=== PATIENT | male | born 1955 | race American Indian/Alaskan Native ===

== ENCOUNTER 2017-05-10 10:11 | Emergency (ER) | payer MEDICARE ==
[2017-05-10 10:17] VITALS: BMI 19.0
[2017-05-10 10:23] VITALS: RESP 18; TEMP 98.7
--- NOTE | 2017-05-10 10:49 | ED PDOC ---
Arrival/HPI - General Chief Complaint: Back Pain Time Seen by Provider: 05/10/17 10:41 Historian: Patient - History of Present Illness Narrative History of Present Illness (Text): 05/10/17 10:52 61 year old male presents to the emergency department with left flank pain and generalized weakness for the past 2 weeks. Patient was scheduled for MRI today but states he was dizzy. Patient also saw PMD last week and had bloodwork done. Denies chest pain. Time/Duration: > week Symptom Onset: Gradual Symptom Course: Unchanged Modifying Factors (Text): None Past Medical History - Provider Review Nursing Documentation Reviewed: Yes - Infectious Disease Hx of Infectious Diseases: None - Cardiac Hx Hypertension: Yes Hx Peripheral Vascular Disease: Yes - Pulmonary Hx Asthma: Yes Hx Chronic Obstructive Pulmonary Disease (COPD): Yes - Psychiatric Hx Substance Use: No - Anesthesia Hx Anesthesia: No Family/Social History - Physician Review Nursing Documentation Reviewed: Yes Family/Social History: Unknown Family HX Smoking Status: Light Smoker < 10 Cigarettes Daily Hx Alcohol Use: No Hx Substance Use: No Allergies/Home Meds Allergies/Adverse Reactions: Allergies No Known Allergies Allergy (Verified 05/10/17 10:17) Home Medications: Home Meds Medication Instructions Recorded Confirmed Albuterol HFA [Ventolin HFA 90 1 puff IH QID PRN 05/10/17 05/10/17 mcg/actuation (8 g)] Azilsartan Medoxomil [Edarbi] 1 tab PO DAILY 05/10/17 05/10/17 Metoprolol Tartrate [Lopressor] 1 tab PO DAILY 05/10/17 05/10/17 amLODIPine [Norvasc] 1 tab PO DAILY 05/10/17 05/10/17 cloNIDine [Catapres] 1 tab PO DAILY 05/10/17 05/10/17 cloNIDine [Catapres] 1 tab PO DAILY 05/10/17 05/10/17 hydroCHLOROthiazide [Hydrodiuril] 1 tab PO DAILY 05/10/17 05/10/17 Review of Systems - Physician Review All systems were reviewed & negative as marked: Yes - Review of Systems Constitutional: Fatigue Cardiovascular: absent: Chest Pain Gastrointestinal: Abdominal Pain (radiating to flank pain) Neurological: Dizziness Physical Exam Vital Signs Reviewed: Yes Vital Signs Temp Pulse Resp BP Pulse Ox 05/10/17 12:11 82 18 173/117 H 100 05/10/17 10:27 198/134 H 05/10/17 10:22 98.7 F 108 H 18 210/128 H 86 L Temperature: Afebrile Blood Pressure: Hypertensive Pulse: Tachycardic Respiratory Rate: Normal Appearance: Positive for: Well-Appearing, Non-Toxic, Comfortable Pain Distress: None - Systems Exam Head: Present: Atraumatic, Normocephalic Pupils: Present: PERRL Extroacular Muscles: Present: EOMI Conjunctiva: Present: Normal Mouth: Present: Moist Mucous Membranes Neck: Present: Normal Range of Motion Respiratory/Chest: Present: Clear to Auscultation, Good Air Exchange. No: Respiratory Distress, Accessory Muscle Use Cardiovascular: Present: Regular Rate and Rhythm, Normal S1, S2. No: Murmurs Abdomen: Present: Normal Bowel Sounds. No: Tenderness, Distention, Peritoneal Signs Back: Present: Other (Mild left flank tenderness) Upper Extremity: Present: Normal Inspection. No: Cyanosis, Edema Lower Extremity: Present: Normal Inspection. No: Edema Neurological: Present: GCS=15, CN II-XII Intact, Speech Normal Skin: Present: Warm, Dry, Normal Color. No: Rashes Psychiatric: Present: Alert, Oriented x 3, Normal Insight, Normal Concentration Medical Decision Making ED Course and Treatment: Impression: 61 year old male presents to the emergency department with left flank pain and generalized weakness for the past 2 weeks. Differential Diagnosis included but are not limited to: r/o renal colic, uti/ pyelo. pt with dizziness. consider atypical cardiac Plan: -- CT Abdomen/Pelvis, EKG, Chest X-ray -- Labs -- Reassess and disposition Progress Notes: PROCEDURE: CT Abdomen and Pelvis without Oral or IV contrast. Supervising Nurse : Thelma Mccoy MD Report Date : 05/10/2017 11:23:18 IMPRESSION: Limited study. Severe diffuse constipation. Evidence of prior granulomatous infection. Left upper pole renal calculus without hydronephrosis. Enlarged prostate gland. Recommend correlation with PSA. Additional findings as above. Chest X-ray Supervising Nurse: Lavinia Beckman MD IMPRESSION: No active pulmonary disease 05/10/17 12:36 able to reach pts pmd dr stapleton, able to obtian old ekg. no noted changes on todays. ekg. pt advise of ct findings. advised to see pmd outpt. - Lab Interpretations Lab Results: 05/10/17 10:40 05/10/17 10:40 Lab Results 05/10/17 12:10: Urine Color Yellow, Urine Appearance Clear, Urine pH 7.0, Ur Specific Bryan 1.020, Urine Protein 100 H, Urine Glucose (UA) Negative, Urine Ketones Negative, Urine Blood Negative, Urine Nitrate Negative, Urine Bilirubin Negative, Urine Urobilinogen 1.0 H, Ur Leukocyte Esterase Negative, Urine RBC Pending, Urine WBC Pending 05/10/17 10:40: Sodium 142, Potassium 4.0, Chloride 102, Carbon Dioxide 33, Anion Gap 11, BUN 19, Creatinine 1.3, Est GFR ( Amer) > 60, Est GFR (Non- Af Amer) 56, Random Glucose 89, Calcium 9.6, Magnesium 2.1, Total Bilirubin 1.1 , AST 23, ALT 24, Alkaline Phosphatase 75, Lactate Dehydrogenase 405, Total Creatine Kinase 98, Troponin I < 0.01, Total Protein 7.4, Albumin 4.2, Globulin 3.2, Albumin/Globulin Ratio 1.3, Lipase 12 L 05/10/17 10:40: PT 11.1, INR 1.03, APTT 30.8 05/10/17 10:40: WBC 4.4 L, RBC 5.32, Hgb 14.4, Hct 42.3, MCV 79.5 L, MCH 27.1, MCHC 34.0, RDW 16.5 H, Plt Count 177, MPV 9.8, Gran % 62.3, Lymph % (Auto) 24.8 , [place] % (Auto) 9.0 H, Eos % (Auto) 2.5, Baso % (Auto) 1.4, Gran # 2.77, Lymph # 1.1 L, [place] # 0.4, Eos # 0.1, Baso # 0.06 - RAD Interpretation Radiology Orders: 05/10/17 10:44 ABD & PELVIS W/O PO OR IV CONT [CT] Stat CHEST PORTABLE [RAD] Stat - EKG Interpretation EKG Interpretation (Text): EKG: Ordered, reviewed, and independently interpreted the EKG. Rate : 100 BPM Rhythm : NSR Interpretation : Nonspecific ST/T wave changes Comparison : No previous EKG for comparison. Interpreted by ED Physician: Yes Type: 12 lead EKG - Scribe Statement The provider has reviewed the documentation as recorded by the Carle Stuart New Provider Scribe Attestation: All medical record entries made by the Carle were at my direction and personally dictated by me. I have reviewed the chart and agree that the record accurately reflects my personal performance of the history, physical exam, medical decision making, and the department course for this patient. I have also personally directed, reviewed, and agree with the discharge instructions and disposition. Disposition/Present on Arrival - Present on Arrival Any Indicators Present on Arrival: No History of DVT/PE: No History of Uncontrolled Diabetes: No Urinary Catheter: No History of Decub. Ulcer: No History Surgical Site Infection Following: None - Disposition Have Diagnosis and Disposition been Completed?: Yes Diagnosis: Flank pain Disposition: HOME/ ROUTINE Disposition Time: 12:37 Patient Problems: Current Active Problems Problem Status Onset Flank pain Acute Condition: STABLE Discharge Instructions (ExitCare): Flank Pain (ED) Additional Instructions: please follow up with your doctor . return to er wiht worsening symptoms or concerns Referrals: Dom Stapleton MD [Primary Care Provider] - Follow up with primary
[2017-05-10 10:57] LABS: ADD MANUAL DIFF? NO
[2017-05-10 11:12] LABS: BASO # 0.06 K/mm3 (0.0-2.0); BASO % 1.4 % (0.0-3.0); EOS # 0.1 (0.0-0.7); EOS % 2.5 % (1.5-5.0); GRAN # 2.77 (1.4-6.5); GRAN % 62.3 % (50.0-68.0); HEMATOCRIT 42.3 % (42.0-52.0); LYMPH # 1.1 (1.2-3.4); LYMPH % 24.8 % (22.0-35.0); MEAN CELL VOLUME 79.5 fL (80.0-105.0); MEAN CORPUSCULAR HEMOGLOBIN 27.1 pg (25.0-35.0); MEAN PLATELET VOLUME 9.8 fl (7.0-11.0); MONO # 0.4 (0.1-0.6); PLATELET COUNT 177 10^3/uL (120.0-450.0); RED CELL DISTRIBUTION WIDTH 16.5 % (11.5-14.5); WHITE BLOOD COUNT 4.4 10^3/ul (4.5-11.0)
--- NOTE | 2017-05-10 11:20 | RAD ---
HISTORY: Dizziness COMPARISON: No prior. FINDINGS: LUNGS: The lungs are hyperinflated and there is peribronchial thickening with chronic changes in both lungs. There is no focal consolidation. PLEURA: No significant pleural effusion identified, no pneumothorax apparent. CARDIOVASCULAR: Normal. OSSEOUS STRUCTURES: No significant abnormalities. VISUALIZED UPPER ABDOMEN: Normal. OTHER FINDINGS: None. IMPRESSION: No active pulmonary disease.
[2017-05-10 11:24] LABS: INR 1.03 (0.93-1.08); PARTIAL THROMBOPLASTIN TIME 30.8 Seconds (23.7-30.8)
--- NOTE | 2017-05-10 11:24 | CT ---
PROCEDURE: CT Abdomen and Pelvis without Oral or IV contrast. HISTORY: left flank pain COMPARISON: None available TECHNIQUE: Contiguous axial images of the abdomen and pelvis. No oral or IV contrast administered. Coronal and Sagittal reformats generated and reviewed. Radiation dose: Total exam DLP = 169.46 mGy-cm. This CT exam was performed using one or more of the following dose reduction techniques: Automated exposure control, adjustment of the mA and/or kV according to patient size, and/or use of iterative reconstruction technique. FINDINGS: There is limited evaluation of the solid organs without the administration of IV contrast. Examination limited by paucity of intra-abdominal and intrapelvic fat. LOWER THORAX: Bibasilar scarring or atelectasis. No visible pleural effusion or pneumothorax. LIVER: Too small to characterize hepatic hypodensities throughout the liver. Hepatic calcification, likely granuloma. GALLBLADDER AND BILE DUCTS: The gallbladder is not well visualized. No calcified gallstones evident. PANCREAS: Unremarkable unenhanced appearance. SPLEEN: Splenic calcifications, likely granulomas. ADRENALS: Unremarkable unenhanced appearance. KIDNEYS AND URETERS: 3 mm left renal calculus without hydronephrosis. No evidence of obstructing calculus or right-sided hydronephrosis. BLADDER: The urinary bladder appears unremarkable. REPRODUCTIVE: The prostate gland measures approximately 4.1 x 4.0 cm and contains calcifications. APPENDIX: The presumed limited visualization of the appendix appears within normal limits of caliber. No secondary signs of acute appendicitis. BOWEL: The stomach is nondistended. Lack of oral contrast limits evaluation for bowel pathology. The bowel loops appear within normal limits of caliber without evidence of intestinal obstruction. Severe diffuse constipation. PERITONEUM: No significant free fluid. No definite free air. LYMPH NODES: No bulky lymphadenopathy identified. VASCULATURE: Limited visualization of the noncontrast study. Scattered atherosclerotic calcifications of the aorta and branches. BONES: Degenerative changes of the spine. OTHER FINDINGS: None. IMPRESSION: Limited study. Severe diffuse constipation. Evidence of prior granulomatous infection. Left upper pole renal calculus without hydronephrosis. Enlarged prostate gland. Recommend correlation with PSA. Additional findings as above.
[2017-05-10 11:33] LABS: ALB/GLOB RATIO 1.3 (1.1-1.8); ALKALINE PHOSPHATASE 75 U/L (38-133); ALT/SGPT 24 U/L (7-56); AST/SGOT 23 U/L (15-59); BILIRUBIN,TOTAL 1.1 mg/dL (0.2-1.3); BLOOD UREA NITROGEN 19 mg/dL (7-21); CALCIUM 9.6 mg/dL (8.4-10.5); CARBON DIOXIDE 33 mmol/L (21-33); CHLORIDE 102 mmol/L (98-107); GFR AFRICAN-AMERICAN > 60; GLUCOSE,RANDOM 89 mg/dL (70-110); LIPASE 12 U/L (23-300); MAGNESIUM 2.1 mg/dL (1.7-2.2); SODIUM 142 mmol/L (132-148); TOTAL PROTEIN 7.4 g/dL (5.8-8.3)
[2017-05-10 11:43] LABS: TROPONIN I < 0.01 ng/mL
[2017-05-10 12:23] LABS: URINE BILIRUBIN NEGATIVE (NEGATIVE); URINE BLOOD NEGATIVE (NEGATIVE); URINE GLUCOSE (UA) NEGATIVE (NEGATIVE); URINE KETONE NEGATIVE (NEGATIVE); URINE LEUKOCYTE ESTERASE NEGATIVE Leu/uL (NEGATIVE); URINE PROTEIN 100 mg/dL (<30 mg/dL)
[2017-05-10 12:24] LABS: URINE APPEARANCE CLEAR (CLEAR); URINE COLOR YELLOW (YELLOW)
[2017-05-10 12:50] VITALS: BP 160/100; PULSE 83; O2SAT 99
[2017-05-10 12:53] LABS: URINE RBC NEGATIVE /hpf (0-2); URINE WBC 0 - 2 /hpf (0-6)
[2017-05-10 12:54] LABS: URINE BACTERIA TRACE (NEG); URINE EPITHELIAL CELLS 0 - 2 /hpf (0-5)
--- NOTE | 2017-05-11 17:58 | CARD ---
APPROVED REPORT EKG Measurement Heart [id number] <Conclusion> Normal sinus rhythm T wave abnormality, consider inferolateral ischemia Abnormal ECG
== END 2017-05-10 12:57 | disposition home or self-care (01) ==
LOC: ED 10:11
DX: R10.9 Unspecified abdominal pain (principal); I10 Essential (primary) hypertension; Z72.0 Tobacco use